=== PATIENT | male | born 1960 | race Caucasian/White ===

== ENCOUNTER 2016-08-30 21:51 | Emergency (ER) | payer OTHER ==
[2016-08-31 01:10] LABS: BASOPHIL 0.2 % (0-2); EOSINOPHIL 0.2 % (0-5); HGB 14.5 g/dl (13.2-18.0); LYMPHOCYTE 9.9 % (15-48); MCH 28.4 pg (25.0-31.0); MCHC 33.7 g/dL (32.0-36.0); MCV 84.3 fL (78.0-100.0); MONOCYTE 5.7 % (0-12); MPV 12.2 fL (6.0-9.5); PLT 169 K/uL (150-400); RDW 12.5 % (11.5-14.0); WBC 13.2 K/uL (4.0-10.5)
[2016-08-31 01:30] LABS: ALBUMIN 4.5 g/dL (3.5-5.0); BILIRUBIN - TOTAL 0.3 mg/dL (0.1-1.0); CREATININE 0.8 mg/dL (0.7-1.2); GLOBULIN (CALCULATION) 2.3 g/dL (2.2-4.2); POTASSIUM 4.3 mmol/L (3.5-5.1); TOTAL PROTEIN 6.8 g/dL (6.4-8.3); URIC ACID 6.6 mg/dL (3.4-7.0)
== END 2016-08-31 03:12 | disposition home or self-care (01) ==
LOC: FER 21:51
PROVIDERS: Emergency Medicine Emergency Medical Services
DX: M70.31 Other bursitis of elbow, right elbow (principal); E11.9 Type 2 diabetes mellitus without complications; I10 Essential (primary) hypertension; K21.9 Gastro-esophageal reflux disease without esophagitis; Z79.84 Long term (current) use of oral hypoglycemic drugs; Z79.899 Other long term (current) drug therapy
CPT/HCPCS: 36415; 73080; 80053; 84550; 85025; 87070; 87205; J1030